=== PATIENT | female | born 1990 | race Caucasian/White ===

== ENCOUNTER 2022-08-30 07:12 | Outpatient (CLI) | payer BC, SELFPAY ==
--- NOTE | 2022-08-30 07:15 | MR_ITS ---
[address] [address] Phone:?[phone] Fax:?[phone] Referring Physician Information: Michelet Martinez [address] [facility] [address] Phone:?[phone] Fax:?[phone] Patient:Aleksander Camilo D.O.B:?1990 Sex:?Female Phone:?[phone] [facility] MRN:?[id number] Exam Date:?08/30/2022 ? EXAM: MRI of the LEFT SHOULDER, without contrast CLINICAL: Left shoulder pain. Evaluate for rotator cuff tear. COMPARISONS: X-rays dated 08/22/2022. TECHNICAL: MRI sequences of the left shoulder: Axials: PD, PDFS Coronals: PD, T2FS Sagittals: PDFS, T2 SEDATION: None. CONTRAST: None. FINDINGS: Rotator cuff: Supraspinatus/Infraspinatus: There is moderate tendinosis of the distal supraspinatus tendon. There is moderate partial bursal surface tearing involving the distal supraspinatus tendon on coronal series 4 image 10 involving approximately 60% of the tendon thickness. Mild partial interstitial tearing of the posterior distal supraspinatus tendon on coronal series 4 images 12-13. Infraspinatus tendon appears unremarkable. No significant fatty atrophy of the muscle bellies. Teres minor: No tendinosis, tear or atrophy. Subscapularis: No tendinosis, tear or atrophy. Bursae: Subacromial-subdeltoid: No convincing subacromial bursal thickening/bursitis. Subcoracoid: No convincing subcoracoid bursal thickening/bursitis. Coracoacromial arch: Acromion morphology: Type II. No os acromiale. Acromiohumeral space: Mildly narrowed. Coracohumeral space: Within normal limits. Biceps tendon, long head: Intraarticular and extraarticular segments intact without rupture, tendinopathy or displacement. Glenohumeral joint: Physiologic volume of joint fluid. Articular cartilage: No significant chondral loss. Capsule: No convincing evidence of capsular thickening or injury. Labrum: There is minimal fraying of the superior labrum. Remainder of the glenoid labrum appears intact as visualized on this nonarthrogram exam. No perilabral cyst identified. Bones: No suspicious marrow signal alteration, fracture or dislocation. Acromioclavicular joint: No acute injury, arthropathy, or inferior hypertrophy. IMPRESSION: 1. Moderate partial bursal surface tearing involving the distal supraspinatus tendon with mild partial interstitial tearing of the posterior distal supraspinatus tendon superimposed upon moderate tendinosis. 2. Mildly narrowed acromiohumeral space. 3. Minimal fraying of the superior labrum. 4. Normal appearance of the long head biceps tendon. No glenohumeral chondral defects or fracture. JCZ Electronically signed on 08/30/2022 1:00:00 PM by Abisai Houser D.O.
== END 2022-08-30 07:13 | disposition home or self-care (01) ==
LOC: MRI 07:13
PROVIDERS: Visit Provider Physician Assistant Surgical
DX: M25.512 Pain in left shoulder (principal); M75.102 Unspecified rotator cuff tear or rupture of left shoulder, not specified as traumatic
CPT/HCPCS: 73221

== ENCOUNTER 2023-02-18 08:45 | Outpatient (CLI) | payer BC, SELFPAY | END 2023-02-18 08:46 | disposition home or self-care (01) | PROVIDERS: PCP Family Medicine; Referring Provider Family Medicine; Visit Provider Family Medicine | DX: R53.83 Other fatigue (principal); Z13.6 Encounter for screening for cardiovascular disorders | CPT/HCPCS: 80053; 80061; 84443 ==

== ENCOUNTER 2023-06-08 08:56 | Outpatient (CLI) | payer SELFPAY | END 2023-06-08 08:57 | disposition home or self-care (01) | LOC: AMB 06-10 10:04 | PROVIDERS: PCP Family Medicine; Visit Provider Student in an Organized Health Care Education/Training Program | DX: R55 Syncope and collapse (principal) | CPT/HCPCS: A0998 ==

== ENCOUNTER 2023-11-13 09:34 | Outpatient (CLI) | payer BC, SELFPAY ==
--- NOTE | 2023-11-13 09:45 | US_ITS ---
Patient: BENNY NOGUERA Facility:?[facility] RIS Patient ID:?[id number] Site Patient ID:?[id number]. Site :?1990 Study:?US-OB Pelvis OB <14wks-11/13/2023 11:25:36 AM Ordering Physician:?Aruna Cameron Final Report: INDICATION: First trimester scan, establish dates. COMPARISON: None. TECHNIQUE: Real-time singh-scale imaging of the pelvis was performed. FINDINGS: Sonographic imaging demonstrates a single living intrauterine gestation. The embryo demonstrates a regular cardiac rate measuring 173 beats per minute. The embryo`s crown-rump length measurement of 2.0 cm corresponds to a gestational age of 8 weeks 5 days with a sonographic due date of 06/19/2024. There is a normal-appearing yolk sac. There are no gross abnormalities noted within the embryo at this early state of development. The gestational sac has a normal appearance. There is no evidence of a perigestational hemorrhage. The amount of fluid within the sac appears appropriate for gestational age. The cervix is closed. Small anterior fibroid measures 2.2 x 1.6 x 2.4 cm. Corpus luteal cyst right ovary. Unremarkable left ovary. There are no suspicious fluid collections noted in the cul-de-sac. IMPRESSION: Gestational age calculated at 8 weeks 5 days with a sonographic due date of 06/19/2024. Anterior fibroid lower uterine segment measuring 2.4 cm. Dictated by Dragan Amato MD @ 11/13/2023 11:52:37 AM Signed by:?Dragan Amato MD @11/13/2023 11:52:37 AM (Electronic Signature)
== END 2023-11-13 09:35 | disposition home or self-care (01) ==
LOC: US 09:35
PROVIDERS: PCP Family Medicine; Visit Provider Registered Nurse
DX: Z34.91 Encounter for supervision of normal pregnancy, unspecified, first trimester (principal); O34.11 Maternal care for benign tumor of corpus uteri, first trimester; Z3A.08 8 weeks gestation of pregnancy
CPT/HCPCS: 76801; 86703; 86706; 86803; 86850; 86900; 86901; 87086; 87340; 87491; 87591

== ENCOUNTER 2023-11-13 11:48 | Outpatient (CLI) | payer BC, SELFPAY ==
[2023-11-13 15:27] LABS: Chlamydia DNA Amplified* NOT DETECTED (No Detected); GC DNA Amplified* NOT DETECTED (No Detected)
== END 2023-11-13 11:49 | disposition home or self-care (01) ==
PROVIDERS: PCP Family Medicine; Visit Provider Registered Nurse
DX: Z34.91 Encounter for supervision of normal pregnancy, unspecified, first trimester (principal)
CPT/HCPCS: 86592; 86703; 86704; 86706; 86762; 86787; 86803; 86850; 86900; 86901; 87086; 87340; 87491; 87591

== ENCOUNTER 2024-02-05 08:02 | Outpatient (CLI) | payer BC, SELFPAY ==
--- NOTE | 2024-02-05 08:15 | CRLHL7_ITS ---
For Patients: As a result of the Century Cures Act, medical imaging exams and procedure reports are released immediately into your electronic medical record. You may view this report before your referring provider. If you have questions, please contact your health care provider. INDICATION: Evaluate anatomy. COMPARISON: 11/13/2023 TECHNIQUE: Real time singh scale imaging of the fetus was performed as well as color Doppler analysis of the umbilical vessels. FINDINGS: Sonographic imaging demonstrates a single living intrauterine gestation. Fetus demonstrates a regular cardiac rate of 149 beats per minute. Fetus has a vertex position. The placenta lies posteriorly without evidence of placenta previa. Placental edge 5.3 cm from the internal cervical os. Amniotic fluid volume appears normal. Single deepest vertical pocket: 4.4 cm. The cervix is closed and measures 4.5 cm in length. The composite ultrasound gestational age is calculated at 21 weeks 0 days with an estimated sonographic due date of 06/17/2024. The estimated weight is 405 grams which lies at the 63rd %. The following biometric measurements were obtained: Biparietal diameter: 4.9 cm/20 weeks 5 days 41st% Head circumference: 18.5 cm/20 weeks 6 days 41st% Abdominal circumference: 16.4 cm/21 weeks 3 days 65th% Femur length: 3.5 cm/21 weeks 0 days 44th% The HC/AC ratio measures: 1.13 range (1.06-1.25) On anatomic survey, there is a normal appearance of the cerebral ventricles, cavum septi pellucidi, cisterna magna and cerebellum. The nose, lips, and facial profile appear normal. The cervical, thoracic and lumbar spine are well visualized and appear normal. There is a normal four-chamber heart view and the left and right ventricular outflow tracts appear normal. The diaphragm and stomach appear normal. The kidneys and bladder also appear normal. There is a normal three-vessel cord and cord insertion site. The four extremities appear normal. IMPRESSION: Concordance of clinical and sonographic dating. No intrinsic abnormalities noted on anatomic survey. Right lower uterine segment fibroid measures 3.5 x 2.0 x 4.0 cm, previously measuring 2.2 x 1.6 x 2.4 cm Dictated by Dragan Amato MD @ 02/05/2024 12:01:50 PM (Electronically Signed)
== END 2024-02-05 08:03 | disposition home or self-care (01) ==
LOC: US 08:03
PROVIDERS: PCP Family Medicine; Visit Provider Advanced Practice Midwife
DX: Z34.92 Encounter for supervision of normal pregnancy, unspecified, second trimester (principal); O34.12 Maternal care for benign tumor of corpus uteri, second trimester; Z3A.21 21 weeks gestation of pregnancy
CPT/HCPCS: 76805

== ENCOUNTER 2024-04-01 09:54 | Outpatient (CLI) | payer BC, SELFPAY | END 2024-04-01 09:55 | disposition home or self-care (01) | LOC: NFLDREF 04-03 08:55 | PROVIDERS: PCP Family Medicine; Referring Provider Family Medicine; Visit Provider Advanced Practice Midwife | DX: Z34.93 Encounter for supervision of normal pregnancy, unspecified, third trimester (principal); Z3A.28 28 weeks gestation of pregnancy | CPT/HCPCS: 86592 ==

== ENCOUNTER 2024-05-27 10:46 | Outpatient (CLI) | payer BC, SELFPAY ==
[2024-05-28 09:39] LABS: Strep B DNA Probe Negative (Negative)
[2024-05-28 09:57] LABS: Strep B Susceptibility Needed? No
== END 2024-05-27 10:47 | disposition home or self-care (01) ==
LOC: NFLDREF 10:46
PROVIDERS: PCP Family Medicine; Visit Provider Midwife
DX: Z34.03 Encounter for supervision of normal first pregnancy, third trimester (principal)
CPT/HCPCS: 87081; 87653

== ENCOUNTER 2024-06-04 12:21 | Outpatient (CLI) | payer BC, SELFPAY | END 2024-06-04 12:22 | disposition home or self-care (01) | PROVIDERS: PCP Family Medicine; Visit Provider Advanced Practice Midwife | DX: R03.0 Elevated blood-pressure reading, without diagnosis of hypertension (principal) | CPT/HCPCS: 82565; 82570; 84156; 84450; 84460; 84520; 84550 ==

== ENCOUNTER 2024-06-10 18:07 | Inpatient (IN) | payer BC, SELFPAY ==
[2024-06-10 18:16] VITALS: PULSE 92; O2SAT 98
[2024-06-10 18:20] VITALS: BP 114/89; PULSE 92
[2024-06-10 18:37] VITALS: RESP 14; TEMP 36.8
[2024-06-10 18:39] VITALS: BMI 32.6
[2024-06-10] MEDS: miSOPROStoL 25 MCG/0.25 TABLET PO ×2 (19:06→22:06)
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
[2024-06-10 20:47] LABS: Basophils Percent Auto 0.3 % (0.0-3.0); Eosinophils Percent Auto 0.5 % (0.0-7.0); Hematocrit 40.8 % (33.0-51.0); Hemoglobin* 13.3 gm/dL (12.0-16.0); Immature Granulocytes Pct Auto 0.5 %; Lymphocytes Percent Auto 23.1 % (20-44); Mean Corpuscular HGB Conc 33 gm/dL (32-36); Mean Corpuscular Hemoglobin 29 pg (26-34); Mean Corpuscular Volume 89 fL (80-100); Monocytes Percent Auto 6.9 % (0.0-11.0); Neutrophils Percent Auto 68.7 % (42.0-72.0); Platelet Count* 234 K/uL (140-440); RDW Coefficient of Variation % 14.2 % (11.5-15.5); White Blood Count* 11.71 K/uL (4.50-11.00)
[2024-06-10 20:50] LABS: Slide Review Reflex No
[2024-06-10 21:04] LABS: Aspartate Amino Transferase* 22 U/L (12-35)
[2024-06-10 21:07] LABS: Total Protein Urine 10 mg/dL
[2024-06-10 21:08] LABS: Creatinine Urine 73.5 mg/dL; Protein Creatinine Ratio Urine 0.14 (0-0.19)
[2024-06-10 21:33] LABS: Alanine Aminotransferase* 10 U/L (4-35); Blood Urea Nitrogen* 10 mg/dL (5-24); Creatinine* 0.6 mg/dL (0.5-1.5); Est. Creatinine Clearance* 127.18; Estimated Glomerular Filt Rate 123 ml/min
[2024-06-10 22:06] VITALS: BP 111/61; PULSE 70; RESP 16; TEMP 36.7
[2024-06-11] VITALS (15 sets, daily range): BP systolic 98–111; BP diastolic 57–76; PULSE 61–91; RESP 16–20; TEMP 36.6–36.8; O2SAT 97–98
[2024-06-11] MEDS: miSOPROStoL 25 MCG/0.25 TABLET PO ×3 (01:07→07:07)
[2024-06-11] MEDS: hydrOXYzine pamoate 25 MG CAPSULE 100 MG PO (01:14)
[2024-06-11] MEDS: SODIUM CHLORIDE 0.9 % (FLUSH) 10 ML SYRINGE IVF (07:08)
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
[2024-06-11] MEDS: DINOPROSTONE 10 MG VAGINAL INSERT VAGINAL (11:45)
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
[2024-06-12] VITALS (7 sets, daily range): BP systolic 93–126; BP diastolic 54–85; PULSE 60–81; TEMP 36.8–36.9
[2024-06-12] MEDS: MORPHINE 10 MG/ML inj IM ×2 (00:35→23:21)
[2024-06-12] MEDS: SODIUM CHLORIDE 0.9 % (FLUSH) 10 ML SYRINGE IVF (00:35)
[2024-06-12] MEDS: hydrOXYzine pamoate 25 MG CAPSULE 100 MG PO ×2 (00:37→23:22)
[2024-06-12] MEDS: miSOPROStoL 25 MCG/0.25 TABLET PO ×3 (00:56→04:27)
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
[2024-06-12] MEDS: FLUTICASONE PROPIONATE NASAL 1 SPRAY NOSTRIL-B (09:04)
[2024-06-12] MEDS: LORATADINE 10 MG TABLET PO (09:04)
[2024-06-12] MEDS: SERTRALINE 100 MG TABLET PO (09:04)
[2024-06-12] MEDS: LACTATED RINGERS 1000 ML 1,000 ML 125 ML IV ×3 (09:26→23:47)
[2024-06-12] MEDS: OXYTOCIN 30 unit/500 ML in NS 30 UNIT/500 ML BAG IVPB (09:27)
[2024-06-12] MEDS: fentaNYL 100 MCG/2 ML inj IVP (16:27)
[2024-06-12] MEDS: lidocaine HCL 2 % JELLY (TOP) STERILE 6 ML TOPICAL (17:00)
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
[2024-06-13] VITALS (92 sets, daily range): BP systolic 85–131; BP diastolic 50–87; PULSE 56–133; RESP 16–18; TEMP 36.6–37.2; O2SAT 87–100
[2024-06-13 00:55] LABS: Rapid Plasma Reagin (RPR) Non Reactive (Non Reactive)
[2024-06-13] MEDS: fentaNYL 100 MCG/2 ML inj IVP (05:44)
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
[2024-06-13] MEDS: LACTATED RINGERS 1000 ML 1,000 ML 125 ML IV (07:56)
[2024-06-13] MEDS: SERTRALINE 100 MG TABLET PO (09:07)
[2024-06-13] MEDS: FLUTICASONE PROPIONATE NASAL 1 SPRAY NOSTRIL-B (09:07)
[2024-06-13] MEDS: LORATADINE 10 MG TABLET PO (09:07)
[2024-06-13] MEDS: fentaNYL 100 MCG/2 ML inj EPIDURAL (09:40)
[2024-06-13] MEDS: PHENYLEPHRINE 100 MCG/ML SYRINGE IVP ×4 (09:48→12:10)
[2024-06-13] MEDS: LIDOCAINE 2% (PF) 5 ML VIAL EPIDURAL (09:57)
[2024-06-13] MEDS: ROPIVACAINE 0.2% 100 ml 100 ML 12 MG EPIDURAL (09:58)
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
[2024-06-13] MEDS: CALCIUM CARBONATE 500 MG CHEW PO (10:53)
[2024-06-13] MEDS: ePHEDrine sulfate 5 MG/ML inj 10 MG IVP ×2 (12:22→12:28)
[2024-06-13] MEDS: AZITHROMYCIN 500 MG in 0.9 % SODIUM CHLORIDE 250 ml 250 ML 255 MG IVPB ×2 (15:22→16:39)
--- NOTE | 2024-06-13 15:29 | PM.OBPNL ---
Subjective Time Seen by Provider: 15:00 Date Seen: 06/13/24 Narrative: Robyn is resting comfortably with her epidural and has been able to take a couple of naps over the afternoon. Contractions have been difficult to trace despite frequent monitor adjustments. A few variable decelerations have been noted with moderate variability and accelerations noted. We discussed repeating a SVE and considering attempting AROM again as no amniotic fluid has been observed. We also discussed a bedside ultrasound to check position which she was agreeable to. Ultrasound showed vertex presentation with a questionable face presentation and probably asynclitic in a OT to OP position. SVE was unchanged and still very difficult as the cervix was very anterior and partially under the pubic. We did discuss the possibility of a delivery and she states that she feels that mentally she is ready for that option. She feels mentally exhausted with her prolonged induction and ready for the next step. Pitocin stopped. Given all of this information it was decided to contact the OB to consult for a delivery. Dr. Bullard was contacted and will present for assessment. We did talk through what to expect from their perspective for a delivery. All questions answered. Objective Vital Signs: Last Vital Signs Temp 98.2 F 06/13/24 14:00 Pulse 65 06/13/24 15:17 Resp 16 06/11/24 23:50 BP 131/74 06/13/24 15:17 Pulse Ox 98 06/13/24 10:42 Pelvic Exam Dilation (cm): 3 Effacement (%): 60 Station: -3 Contractions Monitor mode: External Contraction Frequency: 2-5 Contraction pattern: Irregular Contraction intensity: Mild Pitocin Rate (mU/min): 0 Assessment Station: -3 Amniotic Membrane Status: AROM Status: Category l Heart Rate Baseline: 140 Detention Variability: Moderate (6-25) Monitor Accelerations: Present Monitor Decelerations: Variable Plan Plan: Plan: 33 yo at 39 2/7 weeks gestation? complicated by:?GHTN, Anxiety/Depression on medication, hx of physical exam, remote hx of seizure disorder, rubella non-immune Labor type: Induced labor? Category 1 FHR pattern.?? Labor complicated by: GHTN? GBS negative PLAN:? 1. OB consult. Proceed to delivery 2. Care assumed by Dr. Bullard
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
[2024-06-13] MEDS: CEFAZOLIN 2 GM INJ IVP (16:05)
[2024-06-13] MEDS: LOPERAMIDE HCL 2 MG CAPSULE PO (16:37)
[2024-06-13] MEDS: KETOROLAC 30 MG/ML inj IVP ×2 (16:40→22:37)
[2024-06-13] MEDS: CARBOPROST TROMETHAMINE 250 MCG/ML INJ IM (17:00)
--- NOTE | 2024-06-13 17:09 | PM.OBPRCCS ---
Procedure Time Seen by Provider: 17:09 Date of procedure: 06/13/24 Pre-op diagnosis: 39 weeks gestation, gestational hypertension, maternal request for , mood disorder Post-op diagnosis: same Procedure Done: Global Will [facility] bill your pro fee for this procedure?: Yes Blood Loss Measurement Type: QBL (227) Bakri Used: No IV fluids (mL): 1,400 Urine Output (mL): 1,000 Urine Output Comment: Clear, yellow Surgeon: Wei Bullard MD Anesthesia Type: Epidural Findings: Liveborn male Unremarkable uterus, bilateral fallopian tubes and ovaries Procedure Name: Primary Procedure Description: Patient was taken to the operating room with IV running. She received cefazolin and azithromycin in preoperative prophylaxis. Spinal anesthesia was administered. Mcknight catheter was inserted. She was prepped and draped in the usual sterile fashion. Anesthesia was tested and found to be adequate. A low-transverse skin incision was made with a scalpel and carried through to the underlying layer of fascia with the scalpel. The subcutaneous fat was dissected off the underlying fascia with Bovie and blunt dissection. The fascia was nicked in the midline with a scalpel, and this incision was extended laterally with scissors. The rectus muscles were in the midline. Peritoneum was identified and entered bluntly. Bovie was used to widen this opening laterally. Carson O retractor was inserted and tightened down, providing excellent visualization of the lower uterine segment. The bladder reflection was found to be advanced along the lower uterine segment. A bladder flap was created with a combination of sharp and blunt dissection. Patient discomfort and anxiety was noted during dissection, where we intermittently did pause procedure to allow for optimization by anesthesia. Low-transverse uterine incision was made with a scalpel. Incision was widened bluntly. The 's head was grasped through the hysterotomy and elevated to the hysterotomy. The remainder of the body delivered without incident with the help of fundal pressure. No nuchal cord was noted. Cord was clamped and cut after 30 seconds. Infant was handed off to attending nurses and ASSISTANT PROFESSOR OF RELIGION. The placenta was delivered with gentle traction on the cord. The uterus was cleaned of all clots and debris with the dry lap pad. The uterus was closed in situ to minimize patient pain. The hysterotomy was reapproximated with 0 Vicryl in a running, locked fashion. Second layer of the same suture was used in imbricating fashion to obtain hemostasis. The adnexa were examined and noted to be normal in appearance. The cul-de-sac and gutters were getnyl cleared with dampened laparotomy sponge, removing any further clots and debris. The Carson O retractor was removed. The hysterotomy was reexamined and found to be hemostatic. The rectus muscles were examined and found to be hemostatic. The fascia was reapproximated with 0 Vicryl in a running fashion. Subcutaneous fat was irrigated and Bovie used on oozing vessels. The subcutaneous fat was reapproximated with 2-0 vicryl suture in a running fashion. The skin was closed with a subcuticular stitch of 3-0 monocryl. Subcutanoue vessel was encountered at the right skin closure, where additional electrocautery was utilized. Surgical glue was applied above the incision. Pressure dressing applied. Patient tolerated procedure well aside from discomfort/anxiety throughout procedure. She was taken to recovery area in stable condition. Surgical debrief was completed. details: - Liveborn male fetus - weight: 8lb 6oz - APGARs were 8 and 9 at 1 and 5 minutes respectively Complications: None Pathology: specimen obtained, sent to pathology Surgery Debrief Performed: Yes Condition: stable Disposition: floor
--- NOTE | 2024-06-13 17:36 | W.ANESCHARGE ---
Anesthesia Charges Start Date/Time Anesthesia Start Date: 06/13/24 Anesthesia Start Time: 15:57 Stop Date/Time Anesthesia Stop Date: 06/13/24 Anesthesia Stop Time: 17:29 Summary Emergency: DIRECTOR TALENT MANAGEMENT
--- NOTE | 2024-06-13 17:37 | W.PM.NB ---
Nerve Block Nerve Block Time Seen by Provider: 15:00 Date Seen: 06/13/24 Type of block requested by surgeon for post-operative analgesia: TAP Side: bilateral Time out performed: Yes Verification of patient name: Yes Verification of date of : Yes Site marking: site marked Name of person performing procedure: Jerry Tong Continuous monitoring Was continuous monitoring of O2 sat, B/P, artificial stone setter, recorded every 15 minutes?: Yes Procedure Checklist: sterile prep, needles and gloves Ultrasound guided. Images saved: Yes Medications given in 5ml increments after negative aspiration: Marcaine %: 0.25 mL: 30 Needle gauge: 21 and Exparel mL: 10 Needle gauge: 21 Patient tolerated procedure well: Yes Additional comments: Injected in 5mL increments after negative aspiration Block Charges Block Charge (with Pro Fee): TAP Bilateral Use of Ultrasound Machine for Block: Yes- US Guidance/pain block
[2024-06-14] VITALS (20 sets, daily range): BP systolic 97–121; BP diastolic 64–73; PULSE 73–80; RESP 16; TEMP 36.6–36.8; O2SAT 95–99
[2024-06-14 01:46] LABS: Hematocrit 33.5 % (33.0-51.0); Hemoglobin* 11.1 gm/dL (12.0-16.0); Mean Corpuscular HGB Conc 33 gm/dL (32-36); Mean Corpuscular Hemoglobin 30 pg (26-34); Mean Corpuscular Volume 89 fL (80-100); Platelet Count* 210 K/uL (140-440); Red Blood Count 3.75 m/uL (4.00-5.20)
--- NOTE | 2024-06-14 01:51 | PM.OBPNVD1 ---
OB - PN:Subj Subjective Time Seen by Provider: 01:51 Date Seen: 06/14/24 Narrative: Robyn is POD1 from primary after prolonged IOL for gHTN. is otherwise complicated by anxiety, depression, history of trauma, dyslipidemia. Robyn alerted bedside RN that her pulse ox alarm was going off. I was alerted that patient had significant tachycardia of 190-210bpm per pulse ox. I requested stat EKG, CBC and coags. I presented to the bedside immediately from call room, where Robyn notes she is feeling okay. She notes anxiety similar to how she felt before going into the OR for surgery. She denies dizziness/lightheadedness, chest pain or dyspnea. Radial pulse palpates regular at roughly 100bpm. Abdominal pain is well controlled. She denies nausea/vomiting. UOP appropriate at approximately 100cc/hr post-operatively, clear yellow. SCDs on, no calf tenderness/erythema. OB - PN: Obj Exam Physical Exam: Vital signs: Temp Pulse Resp BP Pulse Ox O2 Del Method 98 F 82 16 110/72 98 Room Air 06/13/24 22:41 06/13/24 22:41 06/14/24 00:35 06/13/24 22:41 06/13/24 22:41 06/13/24 22:41 Narrative: Physical exam: General: No acute distress. Mentating appropriately. Psych: Alert and oriented x3, full affect Heart: Regular rate and rhythm, no murmur rub or gallop Lungs: Clear to auscultation bilaterally Abdomen: Mild gaseous distension. Non-tender, no rebound or guarding. Patient notes it feels good when pressure is applied to abdomen. Incision is covered, clean/dry. Legs: SCDs on. Pulse ox was adjusted with HR in 80-90s. Pelvic: pad was inspected, which has been on since surgery with QBL 180mL weighed by bedside RN Bedside EKG reveals normal sinus rhythm, no ST abnormality. HR is 96bpm. EKG reviewed by myself and Dr. Diego in the ED. OB - PN: A/P Delivery Assessment and Plan (1) Encounter for induction of labor: Status: Acute (2) Gestational hypertension: Status: Acute (3) 38 weeks gestation of : Status: Acute (4) Generalized anxiety disorder: Problem details: Well controlled with sertraline 100 mg daily Status: Chronic (5) Depression: Status: Chronic Plan Robyn is POD1 from primary . Pulse ox was reading HR 190-210bpm with 100%O2 sat and normal BP. UOP has been adequate post-operatively. Benign abdominal exam. Pulse palpated about 100bpm on my arrival to the room, EKG was normal with HR of 96bpm. I was able to review EKG with Dr. Diego and Jerry [employer] [facility] - where she affirmed aberrant pulse ox readings may occur when the pulse ox get dislodged. Hgb has since returned within normal limits for post-op state at 11.1. Plan to cancel coags. I explained that I suspect this was a false positive result due to equipment error. Reassurance provided. Robyn is coping well emotionally after her , though this event understandably led to anxiety. Encouraged rest and bonding with baby. Encouraged her to report any chest pain, dyspnea, dizziness/lightheadedness to RN and we can certainly reasses as needed.
[2024-06-14 01:56] LABS: Slide Review Reflex No
[2024-06-14 02:03] LABS: INR 0.97 (0.91-1.10); Prothrombin Time 13.5 Seconds
[2024-06-14 02:04] LABS: Partial Thromboplastin Time* 28 Seconds (23-33)
[2024-06-14 02:05] LABS: Fibrinogen* 532 mg/dL (200-450)
[2024-06-14] MEDS: KETOROLAC 30 MG/ML inj IVP ×4 (04:37→23:01)
[2024-06-14] MEDS: ACETAMINOPHEN 500 MG TABLET 1000 MG PO ×2 (09:11→20:31)
[2024-06-14] MEDS: DOCUSATE SODIUM 100 MG CAPSULE PO (09:12)
[2024-06-14] MEDS: SERTRALINE 100 MG TABLET PO (09:12)
[2024-06-14] MEDS: FLUTICASONE PROPIONATE NASAL 1 SPRAY NOSTRIL-B (09:12)
[2024-06-14] MEDS: LORATADINE 10 MG TABLET PO (09:12)
--- NOTE | 2024-06-14 09:39 | PM.OBPNVD1 ---
OB - PN:Subj Subjective Time Seen by Provider: 09:39 Date Seen: 06/14/24 Patient comments OB post-: no complaints status: Narrative: Robyn is POD1 from primary after prolonged IOL for gHTN. is otherwise complicated by anxiety, depression, history of trauma, dyslipidemia. Her was uncomplicated, course notable only for false reading of the pulse ox suggesting tachycardia. Robyn is feeling well this morning. She notes her pain is well controlled, rated 2/10 present on NSAIDs and Tylenol. She has not required any oxycodone. She is tolerating small volume solids (Seun crackers) and liquids without nausea or vomiting. She has yet to ambulate. Mcknight catheter in-situ, adequate urine output. She is passing gas, no bowel movement. Lochia is appropriate. Patient notes is going well, aside from baby's sleepiness. Discussed strategies to optimize this. OB - PN: Obj Exam Physical Exam: Vital signs: Temp Pulse Resp BP Pulse Ox O2 Del Method 97.9 F 74 16 102/65 97 Room Air 06/14/24 09:01 06/14/24 09:01 06/14/24 09:01 06/14/24 09:01 06/14/24 09:01 06/14/24 09:01 Narrative: General: Alert and oriented, no acute distress Psych: Appropriate mood and affect Abdomen: Soft, mildly distended in the upper abdomen that is easily depressible and has associated tympany consistent with gaseous distension. Fundus at 1 below umbilicus, firm. Lower extremities: SCDs in place. No calf erythema or tenderness. AM Hgb: 11.1 OB - PN: Obj Data Labs Labs: Laboratory Results - last 24 hr 06/14/24 01:43 WBC 19.00 H RBC 3.75 L Hgb 11.1 L Hct 33.5 MCV 89 MCH 30 MCHC 33 Plt Count 210 INR 0.97 APTT 28 Fibrinogen 532 H OB - PN: A/P Delivery Assessment and Plan (1) Encounter for induction of labor: Status: Acute (2) Gestational hypertension: Status: Acute (3) 38 weeks gestation of : Status: Acute (4) Generalized anxiety disorder: Problem details: Well controlled with sertraline 100 mg daily Status: Chronic (5) Depression: Status: Chronic Plan day: 1 Plan: routine care Comments: Continue routine care and support. Discussed goals for today will include ambulation, p.o. intake and removal of Mcknight catheter. AM hemoglobin reassuring at 11.1. Vital signs are entirely within normal limits, adequate urine output. Continue diligent blood pressure monitoring given gestational hypertension. Patient has been entirely normotensive overnight. HELLP labs as clinically indicated. Anticipated disposition: DC to home post-op day 2-3
[2024-06-14] MEDS: OXYCODONE 5 MG TABLET 2.5 MG PO (23:01)
[2024-06-15 04:37] VITALS: BP 128/85; PULSE 87; RESP 16; O2SAT 96
[2024-06-15] MEDS: IBUPROFEN 600 MG TABLET PO ×3 (07:26→19:43)
[2024-06-15 07:36] VITALS: BP 123/83; PULSE 57; RESP 16; TEMP 36.6
[2024-06-15] MEDS: DOCUSATE SODIUM 100 MG CAPSULE PO (08:32)
[2024-06-15] MEDS: SERTRALINE 100 MG TABLET PO (08:32)
[2024-06-15] MEDS: FLUTICASONE PROPIONATE NASAL 1 SPRAY NOSTRIL-B (08:33)
[2024-06-15] MEDS: LORATADINE 10 MG TABLET PO (08:33)
--- NOTE | 2024-06-15 08:40 | PM.OBPNVD1 ---
OB - PN:Subj Subjective Date Seen: 06/15/24 Narrative: Robyn is a 33 y.o. G 1 P 1 who was admitted to [facility] for [facility] for GHTN. ?She had a that was uncomplicated. The patient feels well. ?The pain is well controlled with current medications. ?She has no new complaints. ?She is breast feeding and reports things are going okay. Baby has been very sleepy at the breast. They have started SNS feedings and plan to see today. the patient has done well.? Vitals have been stable.? She has remained afebrile.? Has a good appetite, is tolerating a general diet. ?She is voiding without difficulty.? She is passing gas and has not had a bowel movement.? She is ambulating and denies any dizziness.? Has small amount of rubra lochia. Problems: none OB - PN: Obj Exam Physical Exam: Vital signs: Temp Pulse Resp BP Pulse Ox O2 Del Method 97.9 F 57 L 16 123/83 96 Room Air 06/15/24 07:36 06/15/24 07:36 06/15/24 07:36 06/15/24 07:36 06/15/24 04:37 06/15/24 04:37 Narrative: GENERAL APPEARANCE:? normal affect, alert, no distress MOOD:? appropriate CHEST:? clear to auscultation HEART:? regular rate and rhythm ABDOMEN:? soft, non-tender the uterine fundus is At Umbilicus, Midline and is appropriate for the stage of recovery. EXTREMITIES:? normal and no edema INCISION: Healing well, no surrounding erythema, abnormal induration or discharge OB - PN: A/P Delivery Assessment and Plan (1) care and examination immediately after delivery: Status: Acute (2) Gestational hypertension: Status: Acute (3) Generalized anxiety disorder: Problem details: Well controlled with sertraline 100 mg daily Status: Chronic (4) Depression: Status: Chronic (5) Status post delivery: Status: Acute (6) Lactating mother: Status: Acute Plan day: 1 Plan: routine care Comments: plan: Routine and postop cares , may see if needed Hgb 11.1. GHTN diagnosed by elevated BP greater than 4 hours apart Labs WNL Anticipate discharge home tomorrow
[2024-06-15] MEDS: ACETAMINOPHEN 500 MG TABLET 1000 MG PO ×3 (10:22→22:08)
[2024-06-15 12:35] VITALS: BP 112/75; PULSE 72; RESP 16; TEMP 36.9; O2SAT 96
[2024-06-15] MEDS: OXYCODONE 5 MG TABLET PO ×3 (13:27→22:09)
[2024-06-15] MEDS: MEASLES,MUMPS,RUBELLA VACC/PF 1 DOSE INJ 1 EACH SUBCUT (13:28)
[2024-06-15 16:07] VITALS: BP 129/84; PULSE 85; RESP 16; TEMP 36.8
[2024-06-15 20:00] VITALS: BP 128/80; PULSE 75; RESP 16; TEMP 36.6; O2SAT 97
[2024-06-16] MEDS: IBUPROFEN 600 MG TABLET PO ×3 (01:33→15:09)
[2024-06-16] MEDS: OXYCODONE 5 MG TABLET PO ×4 (01:33→17:15)
[2024-06-16 01:35] VITALS: BP 125/78; PULSE 87; RESP 16; TEMP 36.6; O2SAT 97
[2024-06-16] MEDS: ACETAMINOPHEN 500 MG TABLET 1000 MG PO ×3 (04:16→16:29)
[2024-06-16 04:25] VITALS: BP 118/80; PULSE 74; RESP 16; TEMP 36.5; O2SAT 97
--- NOTE | 2024-06-16 07:22 | PM.OBDSVD1 ---
DS: Providers Provider Date Seen: 06/16/24 Date of admission: 06/10/24 18:07 Primary care physician: Willa Castano MD Admitting Clinician: Kassie Moreland CNM Attending Physician on discharge: Chelsi Bullard MD Date of Discharge: 06/16/24 DS: Diagnosis Discharge Diagnosis (1) Lactating mother: Status: Acute (2) Status post delivery: Status: Acute (3) Gestational hypertension: Status: Acute (4) Generalized anxiety disorder: Status: Chronic Problem details: Well controlled with sertraline 100 mg daily (5) Depression: Status: Chronic Exam Narrative: Exam Narrative: GENERAL APPEARANCE:? normal affect, alert, no distress? MOOD:? appropriate? CHEST:? clear to auscultation and percussion? HEART:? regular rate and rhythm? ABDOMEN:? soft, non-tender the uterine fundus is 2 cm Below Umbilicus, Midline and is appropriate for the stage of recovery. Incision well approximated without edema, redness, warmth, or drainage. Glue closure intact.? PERINEUM:?intact perineum without edema EXTREMITIES:? normal and no edema? Patient has no complaints? No active bleeding?? Doing well? She is requesting discharge home.? Const: Vital Signs, click to edit/add: Vital Signs - 24 hr 06/15/24 07:36 06/15/24 12:35 06/15/24 16:07 Temperature 97.9 F 98.5 F 98.3 F Pulse Rate [Blood Pressure Cuff] 57 L 72 85 Respiratory Rate 16 16 16 Blood Pressure [Ri ght Arm] 123/83 112/75 129/84 Pulse Oximetry 96 Oxygen Delivery Me thod Room Air Room Air 06/15/24 20:00 06/16/24 01:35 06/16/24 04:25 Temperature 98 F 97.8 F 97.7 F Pulse Rate [Blood Pressure Cuff] 75 87 74 Respiratory Rate 16 16 16 Blood Pressure [Ri ght Arm] 128/80 125/78 118/80 Pulse Oximetry 97 97 97 Oxygen Delivery Me thod Room Air Room Air Room Air Documenting provider has reviewed patient's vital signs: yes OB - DS: Summary Hospital Course Hospital Course: Robyn is a 33 year old G 1 P 1 at 39.5 weeks gestation that was admitted to the Center on 06/10/24 for IOL for gestational hypertension. She had an uncomplicated elective delivery after prolonged induction with minimal progress. She delivered a viable male infant. She is breast feeding and feels it has improved with baby now being more awake and help from nursing and . the patient has done well. Her pain is well controlled with current medications.? She has no new complaints.? Urinary output is adequate and she is voiding without difficulty.? Has a good appetite, is tolerating a general diet, is passing flatus, and has not had a bowel movement.? Has scant amount of rubra lochia.? She is ambulating well. She is planning a Mirena IUD for contraception. Will send her home with a blood pressure cuff to monitor blood pressures. Labs and blood pressures have been normal while hospitalized. Peripartum Data delivery method: Primary C/S; Non-Labored Laceration description: None Episiotomy description: None Procedures: Procedures Operation Date: 06/13/24 14:15 Actual Procedure Side Surgeon p Primary Section Not Applicable Chelsi Bullard MD complications: none [place] Gender: Male Discharge Plan: Home Status at Discharge Functional status at discharge: independent ambulation Overall status at discharge: patient is progressing back to baseline Time Spent with Patient Time attestation: Total time spent providing and/or coordinating discharge services: Discharge Plan Discharge Disposition: Home, Self-Care Date of Admission: 06/10/24 18:07 Primary Care Provider: Willa Castano Condition: Stable Anticipated Discharge Date/Time: 06/16/24 10:00 Discharge Medications: New docusate sodium 100 mg Capsule 100 mg PO DAILY Qty: 100 0RF Rx Instructions: Take 1-2 tabelts daily as needed for constipation. ibuprofen 600 mg Tablet 600 mg PO Q6H PRN (Reason: Pain) Qty: 90 0RF oxycodone 5 mg Tablet 2.5 - 5 mg PO Q4H PRN (Reason: Pain) Qty: 14 0RF Continued epinephrine [EpiPen 2-Stu] 0.3 mg/0.3 mL auto-injector 0.3 ml IM ONCE PRN (Reason: hypersensitivity reaction) Qty: 2 0RF Rx Instructions: as a single dose DHA 200 mg capsule 200 mg PO DAILY loratadine [Claritin] 10 mg tablet 10 mg PO QDAY sertraline 100 mg tablet 100 mg PO QDAY Qty: 90 1RF fluticasone propionate 50 mcg/actuation spray,suspension 1 spray intranasal DAILY Qty: 16 1RF Discharge Orders: Discharge Order (Routine); Ordered 06/16/24 Ordered By: Louisa Borrego Patient Education: OB High Blood Pressure DC, OB Over the Counter Medication Information, OB /Breast Feeding Additional Instructions: Discharge instructions were reviewed with the patient including signs and symptoms of infection and home going medications? ?? Activity restrictions:? Lifting Restrictions: 20 pounds for 6 weeks? No high-impact or core exercises for 6 weeks.?? No not submerge incision under water X 2 weeks?? Nothing vaginally for 6 weeks: no tampons or intercourse? Do not drive while taking narcotic pain medication(s)? Off Work or School for 8 weeks? ?? Symptoms to report to doctor:? -Bleeding that saturates more than one pad per hour? -Passing clots larger than the size of a golf ball? -Pain not relieved by prescribed medication? -Fever above 100.4 degrees Fahrenheit? -A foul vaginal odor? -Difficulty in emotions, mood and functions? -Thoughts of hurting yourself and/or ? -Painful, reddened area in your breast? -Any drainage, redness or tenderness in your IV/epidural site? -Severe headache that doesn't improve after taking medications? -Changes in vision, including temporary loss of vision, blurred vision, and/or light sensitivity? -Upper abdominal pain (usually under ribs on the right side)? -Decrease in urination or painful, frequent urinating? -Chest pain? -Shortness of breath? -Tenderness or pain with redness and/swelling in the calf(s) of your leg? Follow up visits:?? 1. 1 week visit:? incision check.? 2. 2-week visit: discuss infant feeding/care concerns, review control options and screen for anxiety/depression.? 3. 6-week visit for an annual exam.? ?? consultation services are available to all mothers and babies for the first year after delivery.? To make an appointment, please call [phone].? Follow Up Appointments: [facility] [Provider Group] Forms: MyHealth Info Instructions
[2024-06-16 08:47] VITALS: BP 120/82; PULSE 77; RESP 15; TEMP 36.9; O2SAT 99
[2024-06-16] MEDS: FLUTICASONE PROPIONATE NASAL 1 SPRAY NOSTRIL-B (08:58)
[2024-06-16] MEDS: LORATADINE 10 MG TABLET PO (08:59)
[2024-06-16] MEDS: FAMOTIDINE 20 MG TABLET PO (08:59)
[2024-06-16] MEDS: SERTRALINE 100 MG TABLET PO (08:59)
[2024-06-16] MEDS: DOCUSATE SODIUM 100 MG CAPSULE PO (09:01)
[2024-06-16 12:20] VITALS: BP 127/82; PULSE 78; RESP 18; O2SAT 99
[2024-06-16 16:31] VITALS: BP 123/85; PULSE 84; RESP 16; TEMP 36.8; O2SAT 97
== END 2024-06-16 18:40 | disposition home or self-care (01) | DRG 540 ==
PROVIDERS: Advanced Practice Midwife; Admitting Provider Advanced Practice Midwife; PCP Family Medicine; Visit Provider Obstetrics & Gynecology
PROC: (CPT 59514; principal; 2024-06-13 14:00)
DX: O13.4 Gestational [pregnancy-induced] hypertension without significant proteinuria, complicating childbirth (principal); O99.344 Other mental disorders complicating childbirth; O75.81 Maternal exhaustion complicating labor and delivery; F32.A Depression, unspecified; F41.1 Generalized anxiety disorder; E78.5 Hyperlipidemia, unspecified; Z91.410 Personal history of adult physical and sexual abuse; Z87.828 Personal history of other (healed) physical injury and trauma; Z86.69 Personal history of other diseases of the nervous system and sense organs; G89.18 Other acute postprocedural pain; O61.0 Failed medical induction of labor; O61.1 Failed instrumental induction of labor; Z37.0 Single live birth; Z3A.38 38 weeks gestation of pregnancy
CPT/HCPCS: 01961; 01967; 01968; 36415; 59200; 64488; 76942; 82565; 82570; 84156; 84450; 84460; 84520; 85018; 85025; 85027; 85384; 85610; 85730; 86592; 86850; 86900; 86901; 88307; 93005; 99140; A9270; C9290; J0456; J0665; J0690; J1100; J1885; J2250; J2270; J2274; J2371; J2405; J2590; J2795; J3010; J3490; J7050; J7120

== ENCOUNTER 2024-06-29 13:04 | Outpatient (CLI) | payer BC, SELFPAY ==
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
== END 2024-06-29 13:05 | disposition home or self-care (01) ==
PROVIDERS: PCP Family Medicine; Visit Provider Obstetrics & Gynecology
DX: Z39.1 Encounter for care and examination of lactating mother (principal)
CPT/HCPCS: G0463